=== PATIENT | male | born 1985 | race Two or more races ===

== ENCOUNTER 2024-02-06 19:03 | Emergency (ER) | payer OTHER ==
[~2024-02-06] VITALS: Ht 175.3 cm; Wt 88.4 kg
[2024-02-06 19:20] VITALS: BP 132/85; PULSE 66; RESP 14; TEMP 97.7; O2SAT 98
[2024-02-06] MEDS: LIDOCAINE 1% HCL (LOCAL ANESTH.) INJ 20ML MDV ID ONE (20:44)
[2024-02-06] MEDS: TRIAMCINOLONE 40MG/ML 1ML VIAL INTL ONE (23:00)
[2024-02-06] MEDS ORDERED: DOXY100C4 PO (23:20)
[2024-02-06] MEDS ORDERED: IBUP-1456 PO (23:20)
[2024-02-06] MEDS: cefTRIAXone SOD 1,000 MG VL IM ONE (23:44)
== END 2024-02-06 23:34 | disposition home or self-care (01) ==
LOC: ER 19:03
DX: L72.0 Epidermal cyst (principal); Z79.899 Other long term (current) drug therapy
CPT/HCPCS: 10061; 70490; 96372; 99285; J0696; J2001; J3301; 10060